=== PATIENT | male | born 1935 | race Caucasian/White ===

== ENCOUNTER → 2016-07-17 | Outpatient (CLI) | payer OTHER ==
[~2016-07-17] MED LIST: AMLODIPINE BESY10 MG PO; ASA5UEC PO; ATORVASTATIN CA40 MG PO; PERCOCET 10-321 EACH PO
--- NOTE | ~2016-07-17 | EKG ---
[place] [address] [employer] [facility] [place] [employer] [address] ELECTROCARDIOGRAM REPORT Name: BALA CARTY [id number]: 07/17/16 Attend Phys: Alyssa Machado MD Discharge: Date of : 31 Report #: [id number] THIS REPORT FOR: //name// [facility] Test Date: 2016-07-17 Test Time: 08:46:09 Pat Name: BAAL CARTY Department: Room: Gender: Judge: TRACEY : 1935 Requested By: Alyssa Machado Order Number: [id number] MD: Corwin Glass Measurements Intervals [place] Rate: 71 P: 27 MS: 172 QRS: 0 QRSD: 108 T: 38 QT: 371 QTc: 404 Interpretive Statements Sinus rhythm Multiple premature complexes, vent & supraven Low voltage, precordial leads No previous ECG available for comparison Electronically Signed On 07-17-2016 8:57:03 CDT by Corwin Glass [email or web address] <ELECTRONICALLY SIGNED> By: Corwin Glass MD, [facility] 07/17/16 [id number] Corwin Glass MD, FACC /EPI
== END | disposition home or self-care (01) ==
LOC: LITH 08:13
DX: N20.0 Calculus of kidney (principal)